=== PATIENT | male | born 1985 | race Caucasian/White ===

== ENCOUNTER 2017-12-28 13:57 | Outpatient (CLI) | payer OTHER | END 2017-12-28 13:58 | disposition critical access hospital (66) | LOC: EMS 13:57 | PROVIDERS: ATTEND Surgery | DX: T63.441A Toxic effect of venom of bees, accidental (unintentional), initial encounter (principal); R42 Dizziness and giddiness | CPT/HCPCS: A0425; A0427 ==

== ENCOUNTER 2017-12-28 14:14 | Emergency (ER) | payer OTHER ==
[2017-12-28] MEDS ORDERED: FAMOTIDINE 20 MG in SODIUM CHLORIDE 0.9% 50 ML IV ONE (15:02)
[2017-12-28 15:24] VITALS: BP 121/78
--- NOTE | 2017-12-28 15:25 | ED Physician Documentation ---
History of Present Illness - Stated complaint Stated Complaint: ALLERGIC RX/ BEE - Chief complaint Chief Complaint: Allergic Rx - History obtained from History obtained from: Patient - Additonal information Additional information: 32-year-old male presents the emergency department after being stung by multiple wasps. The patient reports generalized redness, itching, dizziness and shortness of breath. EMS was called and the patient was given epinephrine and Solu-Medrol. Presently, the patient's symptoms are mostly resolved. The patient denies any tongue swelling, posterior pharynx swelling or difficulty breathing. Symptoms were described as severe and now mild. No other associated issues Review of Systems Constitutional: denies: Fever Eyes: denies: Loss of vision Ears: denies: Ear pain Nose: denies: Rhinorrhea / runny nose Throat: denies: Sore throat Cardiac: denies: Chest pain / pressure Respiratory: reports: Dyspnea GI: denies: Abdominal Pain : denies: Dysuria Skin: reports: Bite / sting Musculoskeletal: denies: Neck pain Neurologic: denies: Generalized weakness, Near syncope Immunocompromised: denies: Chemotherapy PD PAST MEDICAL HISTORY - Past Medical History Past Medical History: Yes - Past Surgical History Past Surgical History: Yes General: Hiatal hernia repair - Present Medications Home Medications: Ambulatory Orders Medication Instructions Recorded Confirmed Epinephrine [Epipen 2-Vinayak] 0.3 mg IJ ONCE #1 auto.injct 12/28/17 - Allergies Allergies/Adverse Reactions: Allergies Allergy/AdvReac Type Severity Reaction Status Date / Time No Known Drug Allergies Allergy Verified 12/28/17 14:17 - Social History Does the pt smoke?: Yes Smoking Status: Current every day smoker Does the pt drink ETOH?: No Does the pt have substance abuse?: No - Immunizations Immunizations are current?: Yes - POLST Patient has POLST: No PD ED PE NORMAL - General General: Alert and oriented X 3, No acute distress - HEENT HEENT: Atraumatic, PERRL, EOMI, Ears normal, Moist mucous membranes, Pharynx benign, Other (The patient's tongue is midline and within normal limits, there is no posterior pharynx swelling, the uvula is nonedematous and midline. No stridor.) - Cardiac Cardiac: RRR - Respiratory Respiratory: No respiratory distress, Clear bilaterally - Derm Derm: Other (The patient has generalized flushing of the trunk) - Extremities Extremities: No deformity - Neuro Neuro: Alert and oriented X 3, Normal speech - Psych Psych: Normal affect Results - Vitals Vitals: Vital Signs - 24 hr 12/28/17 14:17 Temperature 36.5 C Heart Rate 75 Respiratory 18 Rate Blood Pressure 118/67 O2 Saturation 100 Oxygen O2 Source Room air PD MEDICAL DECISION MAKING - ED course ED course: The patient has had significant improvement in his symptoms, there is no evidence of airway involvement at this point the patient appears appropriate for discharge and ongoing outpatient management. The patient will be given a prescription for an epinephrine pen. I discussed warning signs and recommended returning to the emergency department immediately for worsening or any concerns. Departure - Departure Disposition: 01 Home, Self Care Clinical Impression: Allergic reaction Qualifiers: Encounter type: initial encounter Qualified Code(s): T78.40XA - Allergy, unspecified, initial encounter Condition: Good Instructions: ED Allergic Reaction General Other, ED Bite Sting Insect Gen Allergic React Prescriptions: Epinephrine [Epipen 2-Vinayak] 0.3 mg IJ ONCE #1 auto.injct Comments: Please follow-up with primary care. Please return to the emergency department for any worsening or concerns.
== END 2017-12-28 16:27 | disposition home or self-care (01) ==
LOC: ED 14:14
DX: T63.461A Toxic effect of venom of wasps, accidental (unintentional), initial encounter (principal); F17.200 Nicotine dependence, unspecified, uncomplicated
CPT/HCPCS: 96365; 99283; J7040